=== PATIENT | female | born 1985 | race Caucasian/White ===

== ENCOUNTER → 2017-10-17 | Outpatient (REF) | payer OTHER ==
[2017-10-17 13:33] LABS: BASO % 0.7 % (0.0-1.0); EOS # 0.1 10^3/uL (0.0-0.50); EOS % 1.7 % (0.0-3.0); HEMATOCRIT 39.7 % (36.0-47.0); HEMOGLOBIN 13.4 g/dl (12.0-15.5); IMMATURE GRANULOCYTE % 0.3 % (0-3.0); LYMPH # 2.1 10^3/uL (1.5-6.5); LYMPH % 36.4 % (24.0-44.0); MEAN CORPUSCULAR HGB CONC 33.8 g/dl (32.0-36.5); MEAN CORPUSCULAR VOLUME 94.7 fl (80.0-96.0); MONO # 0.4 10^3/uL (0.0-0.8); MONO % 7.1 % (0.0-5.0); NEUTROPHILS # 3.1 10^3/uL (1.8-7.7); NEUTROPHILS % 53.8 % (36.0-66.0); PLATELET COUNT, AUTOMATED 263 10^3/uL (150-450); RED BLOOD COUNT 4.19 10^6/uL (4.00-5.40); WHITE BLOOD COUNT 5.8 10^3/uL (4.0-10.0)
[2017-10-17 13:57] LABS: ALBUMIN/GLOBULIN RATIO 1.33 (1.00-1.93); ALKALINE PHOSPHATASE 48 U/L (45-117); ALT/SGPT 25 U/L (12-78); ANION GAP 4 MEQ/L (8-16); AST/SGOT 13 U/L (7-37); BILIRUBIN,TOTAL 0.5 MG/DL (0.2-1.0); BLOOD UREA NITROGEN 8 MG/DL (7-18); CARBON DIOXIDE LEVEL 29 MEQ/L (21-32); CHLORIDE LEVEL 108 MEQ/L (98-107); CREATININE FOR GFR 0.72 MG/DL (0.55-1.30); GLOMERULAR FILTRATION RATE > 60.0 (>60); GLUCOSE, FASTING 72 MG/DL (70-100); POTASSIUM SERUM 4.8 MEQ/L (3.5-5.1); SODIUM LEVEL 141 MEQ/L (136-145)
[2017-10-20 08:06] LABS: LEVETIRACETAM (KEPPRA) 33.5 ug/mL (10.0-40.0)
== END ==
LOC: M LABNEURO 11:51
DX: G40.009 Localization-related (focal) (partial) idiopathic epilepsy and epileptic syndromes with seizures of localized onset, not intractable, without status epilepticus (principal)
CPT/HCPCS: 80053

== ENCOUNTER → 2025-03-30 | Outpatient (CLI) | payer BC ==
[2025-03-30 19:56] LABS: RHEUMATOID FACTOR QUANT 57.1 IU/ML (<14)
[2025-03-30 20:00] LABS: VITAMIN B12 LEVEL 597.0 PG/ML (211-911)
[2025-04-02 09:17] LABS: DRVV SCREEN 32.5 SECONDS
[2025-04-02 09:56] LABS: PTT LUPUS TYPE ANTICOAG SCREEN 0.82 (0-1.20)
[2025-04-03 01:13] LABS: CARDIOLIPIN IGA ANTIBODY < 2.0 APL-U/mL (<20.0); CARDIOLIPIN IGG ANTIBODY < 2.0 GPL-U/mL (<20.0); CARDIOLIPIN IGM ANTIBODY < 2.0 MPL-U/mL (<20.0)
[2025-04-05 15:28] LABS: VITAMIN E(ALPHA TOCOPHEROL) 14.0 mg/L (5.7-19.9); VITAMIN E(GAMMA TOCOPHEROL) 2.3 mg/L (<=4.3)
[2025-04-05 15:37] LABS: HOMOCYST(E)INE SERUM 8.2 umol/L (< or = 11.0)
[2025-04-07 00:27] LABS: ANTI THROMBIN 3 FUNCT ACTIVITY 102 % normal (80-135); PROTEIN C FUNCTIONAL ACTIVITY 120 % normal (70-180); PROTEIN S FUNCTIONAL ACTIVITY 90 % normal (60-140)
[2025-04-07 15:57] LABS: VITAMIN B1 LEVEL WHOLE BLOOD 102 nmol/L (78-185)
[2025-04-09 23:28] LABS: VITAMIN B6,PYRIDOXAL PHOSPHATE 29.5 ng/mL (2.1-21.7)
== END ==
LOC: M LAB 17:13
PROVIDERS: ATTEND Psychiatry & Neurology Neurology
DX: G45.9 Transient cerebral ischemic attack, unspecified (principal)

== ENCOUNTER → 2025-03-31 | Outpatient (REF) | payer BC | LOC: M LAB 15:05 | PROVIDERS: ATTEND Psychiatry & Neurology Neurology | DX: G45.9 Transient cerebral ischemic attack, unspecified (principal) ==